=== PATIENT | female | born 1975 | race Caucasian/White ===

== ENCOUNTER 2017-10-05 09:08 | Emergency (ER) | payer OTHER ==
[~2017-10-05] VITALS: Ht 167.6 cm; Wt 86.0 kg
[2017-10-05 09:14] VITALS: BP 136/84; PULSE 109; RESP 16; TEMP 98.3; O2SAT 99
[2017-10-05] MEDS ORDERED: TETANUS/DIPHTHERIA TOXOID ADULT 0.5 ML VIAL IM ONE (09:45)
[2017-10-05] MEDS ORDERED: LIDOCAINE 2%/EPINEPHrine 1:100,000 20ML MDV NERV BLOCK ONE (09:45)
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
[2017-10-05] MEDS ORDERED: ONDANSETRON ODT 4 MG TAB PO ONE (10:45)
[2017-10-05] MEDS ORDERED: CEPH-460 PO (10:51)
[2017-10-05] MEDS ORDERED: NEOMSUS LEFT EYE (11:00)
== END 2017-10-05 11:05 | disposition home or self-care (01) ==
LOC: NEPD 09:08
DX: S71.112A Laceration without foreign body, left thigh, initial encounter (principal); S80.02XA Contusion of left knee, initial encounter; V18.4XXA Pedal cycle driver injured in noncollision transport accident in traffic accident, initial encounter; Z23 Encounter for immunization
CPT/HCPCS: 12002; 90471; 90714